=== PATIENT | female | born 1965 | race Caucasian/White ===

== ENCOUNTER 2018-03-05 11:12 | Emergency (ER) | payer BC ==
[2018-03-05] MEDS ORDERED: METOCLOPRAMIDE 10 MG/2mL INJ ONE (12:13)
[2018-03-05] MEDS ORDERED: KETOROLAC 30 MG/ML INJ ONE (12:13)
[2018-03-05] MEDS ORDERED: DIPHENHYDRAMINE 25 MG TAB/CAP ONE (12:17)
[2018-03-05 12:20] LABS: Urine Blood NEGATIVE (NEG); Urine Glucose NEGATIVE (NEG); Urine Protein 1+ (NEG); Urine Specific Gravity 1.025 (1.005-1.030); Urine pH 6.5 (5.0-7.0)
[2018-03-05] MEDS ORDERED: DEXAMETHASONE 10 MG/ML VIAL ONE (13:21)
[2018-03-05] MEDS ORDERED: MEPERIDINE HCL 50 MG/ML AMP ONE (13:23)
--- NOTE | 2018-03-05 14:11 | EDPHYS ---
Physician Documentation [facility] Name: Christy Toro Age: 52 yrs Sex: Female : 1965 Arrival Date: 03/05/2018 Time: 11:15 Bed 26 Private MD: Richy Barreto F ED Physician Danis Matos HPI: 03/05 11:55 This 52 yrs old Female presents to ER via Ambulatory with complaints of jr8 Headache - MIGRAINE, Dizziness, Vomiting. 11:55 The patient complains of pain to the forehead. The patient describes the headache as jr8 throbbing. Onset: The symptoms/episode began/occurred acutely, 3 day(s) ago. Associated signs and symptoms: Pertinent positives: Photophobia vomiting. Severity of symptoms: At its worst the pain was moderate, in the emergency department the pain is unchanged. Headache History: The patient has had previous headaches and this one is similar to previous episodes. The symptoms are alleviated by nothing. the symptoms are aggravated by lights, movement, noise. The patient has experienced similar episodes in the past, several times. The patient has not recently seen a physician. Stated that it is the same migraine she gets but that her medication is not working this time . 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 - Social history:: Smoking status: Patient/guardian denies using tobacco. - Ebola Screening: : No symptoms or risks identified at this time. ROS: 11:55 Eyes: Negative for injury, pain, redness, and discharge, ENT: Negative for injury, jr8 pain, and discharge, Neck: Negative for injury, pain, and swelling, Cardiovascular: Negative for chest pain, palpitations, and edema, Respiratory: Negative for shortness of breath, cough, wheezing, and pleuritic chest pain, Abdomen/GI: Negative for abdominal pain, nausea, vomiting, diarrhea, and constipation, Back: Negative for injury and pain, MS/Extremity: Negative for injury and deformity, Skin: Negative for injury, rash, and discoloration. 11:55 Neuro: Positive for headache, Negative for altered mental status, dizziness, gait disturbance, hearing loss, loss of consciousness, numbness, seizure activity, speech changes, syncope, near syncope, tingling, tinnitus, tremor, visual changes, weakness. Exam: 11:55 Eyes: Pupils equal round and reactive to light, extra-ocular motions intact. Lids and jr8 lashes normal. Conjunctiva and sclera are non-icteric and not injected. Cornea within normal limits. Periorbital areas with no swelling, redness, or edema. ENT: Nares patent. No nasal discharge, no septal abnormalities noted. Tympanic membranes are normal and external auditory canals are clear. Oropharynx with no redness, swelling, or masses, exudates, or evidence of obstruction, uvula midline. Mucous membranes moist. Neck: Trachea midline, no thyromegaly or masses palpated, and no cervical lymphadenopathy. Supple, full range of motion without nuchal rigidity, or vertebral point tenderness. No Meningismus. Cardiovascular: Regular rate and rhythm with a normal S1 and S2. No gallops, murmurs, or rubs. Normal PMI, no JVD. No pulse deficits. Respiratory: Lungs have equal breath sounds bilaterally, clear to auscultation and percussion. No rales, rhonchi or wheezes noted. No increased work of breathing, no retractions or nasal flaring. Abdomen/GI: Soft, non-tender, with normal bowel sounds. No distension or tympany. No guarding or rebound. No evidence of tenderness throughout. Back: No spinal tenderness. No costovertebral tenderness. Full range of motion. Skin: Warm, dry with normal turgor. Normal color with no rashes, no lesions, and no evidence of cellulitis. MS/ Extremity: Pulses equal, no cyanosis. Neurovascular intact. Full, normal range of motion. Neuro: Awake and alert, GCS 15, oriented to person, place, time, and situation. Cranial nerves II-XII grossly intact. Motor strength 5/5 in all extremities. Sensory grossly intact. Cerebellar exam normal. Normal gait. Vital Signs: 11:25 BP 131 / 92; Pulse 98; Resp 18; Temp 97; Pulse Ox 100% ; Weight 68.04 kg; Height 5 ft. sv 3 in. (160.02 cm); Pain 9/10; 13:10 BP 106 / 75; Pulse 82; Resp 16; Pulse Ox 96% on R/A; aj1 11:25 Body Mass Index 26.57 (68.04 kg, 160.02 cm) sv MDM: 11:33 Patient medically screened. jr8 14:10 Data reviewed: vital signs, nurses notes, and as a result, I will discharge patient. jr8 Data interpreted: Pulse oximetry: on room air is 96 %. Interpretation: normal. Counseling: I had a detailed discussion with the patient and/or guardian regarding: the historical points, exam findings, and any diagnostic results supporting the discharge/admit diagnosis, the need for outpatient follow up, a neurologist, to return to the emergency department if symptoms worsen or persist or if there are any questions or concerns that arise at home. Response to treatment: the patient's symptoms have markedly improved after treatment. 03/05 11:55 Order name: Urine Dipstick--Ancillary (enter results); Complete Time: 12:22 bd 03/05 11:55 Order name: Urine --Ancillary (enter results); Complete Time: 12:22 bd 03/05 11:46 Order name: IV; Complete Time: 12:05 jr8 Administered Medications: 12:19 CANCELLED (Facility is out of IV Benadryl): Benadryl 25 mg IVP once aj1 12:20 Drug: Reglan 10 mg Route: IVP; Site: right forearm; aj1 13:07 Follow up: Response: No adverse reaction aj1 12:20 Drug: TORadol 30 mg Route: IVP; Site: right forearm; aj1 13:07 Follow up: Response: No adverse reaction aj1 12:40 Drug: Benadryl 50 mg Route: PO; aj1 13:07 Follow up: Response: No adverse reaction aj1 13:22 Drug: Demerol 25 mg Route: IVP; Site: right forearm; aj1 13:22 Drug: Decadron - Dexamethasone 10 mg Route: IVP; Site: right forearm; aj1 Disposition: 15:20 Co-signature as Attending Physician, Danis Matos MD. rn Disposition: 03/05/18 14:11 Discharged to Home. Impression: Migraine. - Condition is Stable. - Discharge Instructions: Migraine Headache. - Medication Reconciliation Form, Thank You Letter, Antibiotic Education, Prescription Opioid Use form. - Follow up: Richy Barreto MD; When: 5 - 6 days; Reason: Recheck today's complaints, Continuance of care, Re-evaluation by your physician. - Problem is new. - Symptoms have improved. Signatures: Dispatcher [employer] EDChiara Terry RN RN aj1 Amy Khoury RN RN sv Nieto, Roman, MD MD rn Smirch, Shelby, RN RN ss Roszak, Josh, PA PA jr8 Corrections: (The following items were deleted from the chart) 12:19 11:46 Benadryl 25 mg IVP once ordered. jr8 aj1 14:38 14:11 03/05/2018 14:11 Discharged to Home. Impression: Migraine. Condition is Stable. ss Forms are Medication Reconciliation Form, Thank You Letter, Antibiotic Education, Prescription Opioid Use. Follow up: Richy Barreto; When: 5 - 6 days; Reason: Recheck today's complaints, Continuance of care, Re-evaluation by your physician. Problem is new. Symptoms have improved. jr8
--- NOTE | 2018-03-05 14:11 | ER ---
Nurse's Notes [facility] Name: Christy Toro Age: 52 yrs Sex: Female : 1965 Arrival Date: 03/05/2018 Time: 11:15 Bed 26 Private MD: Richy Barreto F Diagnosis: Migraine Presentation: 03/05 11:23 Presenting complaint: Patient states: migraine, dizziness, vomiting since Sunday. sv Transition of care: patient was not received from another setting of care. Onset of symptoms was March 02, 2018. Care prior to arrival: None. 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 - Social history:: Smoking status: Patient/guardian denies using tobacco. - Ebola Screening: : No symptoms or risks identified at this time. Screenin:57 Abuse screen: Denies threats or abuse. Denies injuries from another. Nutritional aj1 screening: No deficits noted. Tuberculosis screening: No symptoms or risk factors identified. Assessment: 11:57 General: Appears in no apparent distress. uncomfortable, Behavior is calm, cooperative, aj1 appropriate for age. Pain: Complains of pain in forehead Pain does not radiate. Pain currently is 9 out of 10 on a pain scale. Quality of pain is described as pressure, Pain began 4 days ago Is continuous, Alleviated by nothing. Aggravated by lights, sound and smoke. Neuro: Level of Consciousness is awake, alert, obeys commands, Oriented to person, place, time, situation, [employer] Supervisor are equal bilaterally Moves all extremities. Full function Gait is steady, Speech is normal, Facial symmetry appears normal, Pupils are PERRLA, Intact Reports dizziness, headache photophobia. Cardiovascular: Patient's skin is warm and dry. Respiratory: Airway is patent Respiratory effort is even, unlabored, Respiratory pattern is regular, symmetrical. GI: Reports nausea, vomiting, Patient currently denies diarrhea. : No signs and/or symptoms were reported regarding the genitourinary system. EENT: No signs and/or symptoms were reported regarding the EENT system. Derm: No signs and/or symptoms reported regarding the dermatologic system. Skin is pink, warm \T\ dry. normal. Musculoskeletal: No signs and/or symptoms reported regarding the musculoskeletal system. Circulation, motion, and sensation intact. 13:08 Reassessment: Patient appears in no apparent distress at this time. Patient and/or aj1 family updated on plan of care and expected duration. Pain level reassessed. Patient is alert, oriented x 3, equal unlabored respirations, skin warm/dry/pink. Patient states that her pain has decreased to a 7/10, but she is still having a headache and would like something else for the pain. Notified ANGELO Cantrell of patient complaint. Vital Signs: 11:25 BP 131 / 92; Pulse 98; Resp 18; Temp 97; Pulse Ox 100% ; Weight 68.04 kg; Height 5 ft. sv 3 in. (160.02 cm); Pain 9/10; 13:10 BP 106 / 75; Pulse 82; Resp 16; Pulse Ox 96% on R/A; aj1 11:25 Body Mass Index 26.57 (68.04 kg, 160.02 cm) sv ED Course: 11:15 Patient arrived in ED. sb2 11:16 Richy Barreto MD is Private Physician. sb2 11:23 Triage completed. sv 11:26 Arm band placed on left wrist. sv 11:32 Humphrey Suh PA is PHCP. jr8 11:32 Danis Matos MD is Attending Physician. jr8 11:33 Chiara Vazquez, NERISSA is Primary Nurse. aj1 11:57 Patient has correct armband on for positive identification. Bed in low position. Call aj1 light in reach. Side rails up X 1. Door closed. Noise minimized. Lights dimmed. Warm blanket given. 11:57 No provider procedures requiring assistance completed. aj1 12:06 Inserted saline lock: 22 gauge in right forearm, using aseptic technique. Blood em1 collected. 14:10 Richy Barreto MD is Referral Physician. jr8 14:37 IV discontinued, intact, bleeding controlled, No redness/swelling at site. Pressure ss dressing applied. Administered Medications: 12:19 CANCELLED (Facility is out of IV Benadryl): Benadryl 25 mg IVP once aj1 12:20 Drug: Reglan 10 mg Route: IVP; Site: right forearm; aj1 13:07 Follow up: Response: No adverse reaction aj1 12:20 Drug: TORadol 30 mg Route: IVP; Site: right forearm; aj1 13:07 Follow up: Response: No adverse reaction aj1 12:40 Drug: Benadryl 50 mg Route: PO; aj1 13:07 Follow up: Response: No adverse reaction aj1 13:22 Drug: Demerol 25 mg Route: IVP; Site: right forearm; aj1 13:22 Drug: Decadron - Dexamethasone 10 mg Route: IVP; Site: right forearm; aj1 Outcome: 14:11 Discharge ordered by MD. jr8 14:37 Discharged to home ambulatory, with significant other. ss 14:37 Condition: good 14:37 Discharge instructions given to patient, significant other, Instructed on discharge instructions, follow up and referral plans. Demonstrated understanding of instructions, follow-up care. 14:38 Patient left the ED. ss Signatures: Chiara Vazquez RN NERISSA aj1 Amy Khoury RN Blaine Gonzales em1 Shanta Hanson RN RN ss Humphrey Suh PA PA jr8 Robina Stallings sb2
== END 2018-03-05 14:38 | disposition home or self-care (01) ==
LOC: ER 11:12
DX: G43.909 Migraine, unspecified, not intractable, without status migrainosus (principal); Z88.1 Allergy status to other antibiotic agents; Z88.3 Allergy status to other anti-infective agents; Z88.8 Allergy status to other drugs, medicaments and biological substances
CPT/HCPCS: 81003; 81025; 96374; 96375; 99283; J1100; J2175; J2765

== ENCOUNTER 2019-07-11 15:53 | Emergency (ER) | payer BC ==
[2019-07-11] MEDS ORDERED: PROMETHAZINE INJ 25 MG/ML AMP ONE (16:14)
[2019-07-11] MEDS ORDERED: DIAZEPAM 10 MG/2 ML INJ SYRINGE ONE (16:15)
[2019-07-11] MEDS ORDERED: NA CHLORIDE 0.9% 1,000 ML ONE (16:15)
--- NOTE | 2019-07-11 16:22 | EDPHYS ---
Physician Documentation [facility] Name: Christy Toro Age: 54 yrs Sex: Female : 1965 Arrival Date: 07/11/2019 Time: 15:55 Bed 19 Private MD: Richy Barreto F ED Physician Odell Walls HPI: 07/11 16:24 This 54 yrs old Female presents to ER via Ambulatory with complaints of snw Dizziness. 16:24 The patient presents with sense of spinning. Onset: The symptoms/episode began/occurred snw suddenly, 3 day(s) ago, and became persistent. Context: occurred at home, occurred while the patient was random. Modifying factors: The symptoms are alleviated by nothing, the symptoms are aggravated by changing position. Associated signs and symptoms: Pertinent positives: nausea. Severity of symptoms: At their worst the symptoms were moderate in the emergency department the symptoms have improved. Patient's baseline: Neuro: alert and fully oriented, Motor: no deficits, Ambulation: walks without assistance, Speech: normal. The patient has not experienced similar symptoms in the past, but similar s/s to migraines without the headache. The patient has not recently seen a physician, the patient's primary care provider is Dr. Barreto. 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 - Coronavirus screen:: The patient has NOT traveled to [place], [place], or [place] in the past 14 days. Proceed with normal triage process as indicated. The patient has NOT had contact with known/suspected case of Coronavirus?. - Social history:: Smoking status: . - Ebola Screening: : No symptoms or risks identified at this time. ROS: 16:22 Constitutional: Negative for fever, chills, and weight loss, Eyes: Negative for injury, snw pain, redness, and discharge, ENT: Negative for injury, pain, and discharge, Neck: Negative for injury and swelling, positive for posterior neck tightness Cardiovascular: Negative for chest pain, palpitations, and edema, Respiratory: Negative for shortness of breath, cough, wheezing, and pleuritic chest pain, Abdomen/GI: Negative for abdominal pain, vomiting, diarrhea, and constipation, postitive for nausea Back: Negative for injury and pain, : Negative for injury, bleeding, discharge, and swelling, MS/Extremity: Negative for injury and deformity, Skin: Negative for injury, rash, and discoloration. 16:22 Neuro: Positive for dizziness. Exam: 16:21 Constitutional: This is a well developed, well nourished patient who is awake, alert, snw and in no acute distress. Head/Face: Normocephalic, atraumatic. Eyes: Pupils equal round and reactive to light, extra-ocular motions intact. Lids and lashes normal. Conjunctiva and sclera are non-icteric and not injected. Cornea within normal limits. Periorbital areas with no swelling, redness, or edema. ENT: Nares patent. No nasal discharge, no septal abnormalities noted. Tympanic membranes are normal and external auditory canals are clear. Oropharynx with no redness, swelling, or masses, exudates, or evidence of obstruction, uvula midline. Mucous membranes moist. Neck: Trachea midline, no thyromegaly or masses palpated, and no cervical lymphadenopathy. Supple, full range of motion without nuchal rigidity, or vertebral point tenderness. No Meningismus. Chest/axilla: Normal chest wall appearance and motion. Nontender with no deformity. No lesions are appreciated. Cardiovascular: Regular rate and rhythm with a normal S1 and S2. No gallops, murmurs, or rubs. Normal PMI, no JVD. No pulse deficits. Respiratory: Lungs have equal breath sounds bilaterally, clear to auscultation and percussion. No rales, rhonchi or wheezes noted. No increased work of breathing, no retractions or nasal flaring. Abdomen/GI: Soft, non-tender, with normal bowel sounds. No distension or tympany. No guarding or rebound. No evidence of tenderness throughout. Back: No spinal tenderness. No costovertebral tenderness. Full range of motion. Skin: Warm, dry with normal turgor. Normal color with no rashes, no lesions, and no evidence of cellulitis. MS/ Extremity: Pulses equal, no cyanosis. Neurovascular intact. Full, normal range of motion. Neuro: Awake and alert, GCS 15, oriented to person, place, time, and situation. Cranial nerves II-XII grossly intact. Motor strength 5/5 in all extremities. Sensory grossly intact. Cerebellar exam normal. Normal gait. Psych: Awake, alert, with orientation to person, place and time. Behavior, mood, and affect are within normal limits. Vital Signs: 15:58 BP 140 / 101; Pulse 65; Resp 16 S; Temp 98.0(O); Pulse Ox 100% on R/A; Weight 70.31 kg aa5 (R); Height 5 ft. 3 in. (160.02 cm) (R); Pain 7/10; 15:58 Body Mass Index 27.46 (70.31 kg, 160.02 cm) aa5 MDM: 16:02 Patient medically screened. snw 16:18 Data reviewed: vital signs, nurses notes. Data interpreted: Pulse oximetry: on room air snw is 100 %. Interpretation: normal. Counseling: I had a detailed discussion with the patient and/or guardian regarding: the historical points, exam findings, and any diagnostic results supporting the discharge/admit diagnosis, the presence of at least one elevated blood pressure reading (>120/80) during this emergency department visit. Response to treatment: pt left department prior to IV start without stating reason. Administered Medications: No medications were administered Disposition: 18:34 Co-signature as Attending Physician, Odell Walls MD I agree with the assessment and kdr plan of care. Disposition: 07/11/19 16:21 Patient has left against medical advice. - Patients states they are going to Home. - Condition is Undetermined. Signatures: Dispatcher [employer] EDMS Odell Walls MD MD kdr Therrien, Shelly, FNP-C SHIP OFFICER-Shani Dumont, RN RN aa5 Rosa Powell RN RN tw2 Corrections: (The following items were deleted from the chart) 16:21 16:21 07/11/2019 16:21 Patients has left against medical advice. Patient states they tw2 are going to Home. Condition is Undetermined. tw2
--- NOTE | 2019-07-11 16:22 | ER ---
Nurse's Notes [facility] Name: Christy Toro Age: 54 yrs Sex: Female : 1965 Arrival Date: 07/11/2019 Time: 15:55 Bed 19 Private MD: Richy Barreto F Diagnosis: Presentation: 07/11 15:57 Presenting complaint: Patient states: dizziness x 3 days ago and worse today. Pt states aa5 "the back of my neck feels tight". pt also reports nausea. Transition of care: patient was not received from another setting of care. Onset of symptoms was June 2019. Risk Assessment: Do you want to hurt yourself or someone else? Patient reports no desire to harm self or others. Initial Sepsis Screen: Does the patient meet any 2 criteria? No. Patient's initial sepsis screen is negative. Does the patient have a suspected source of infection? No. Patient's initial sepsis screen is negative. Care prior to arrival: None. 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 - Coronavirus screen:: The patient has NOT traveled to [place], [place], or [place] in the past 14 days. Proceed with normal triage process as indicated. The patient has NOT had contact with known/suspected case of Coronavirus?. - Social history:: Smoking status: . - Ebola Screening: : No symptoms or risks identified at this time. Screenin:06 Abuse screen: Denies threats or abuse. Nutritional screening: No deficits noted. tw2 Tuberculosis screening: No symptoms or risk factors identified. Fall Risk None identified. Assessment: 16:05 Reassessment: provider at bedside at this time. tw2 16:19 Reassessment: walking into exam room with medication, iv start tote, and pt labels, pt tw2 and daughter leaving exam room, i called pts name and she kept walking, daughter asked "are you doing her blood work?", i explained that i am and that i have medication in my hand for her, the daughter called her mothers name twice and she kept walking out of the ER at this time, pt and daughter seen getting into vehicle. Vital Signs: 15:58 BP 140 / 101; Pulse 65; Resp 16 S; Temp 98.0(O); Pulse Ox 100% on R/A; Weight 70.31 kg aa5 (R); Height 5 ft. 3 in. (160.02 cm) (R); Pain 7/10; 15:58 Body Mass Index 27.46 (70.31 kg, 160.02 cm) aa5 ED Course: 15:55 Patient arrived in ED. as 15:55 Richy Barreto MD is Private Physician. as 15:57 Triage completed. aa5 15:57 Arm band placed on. aa5 16:00 Rosa Powell, RN is Primary Nurse. tw2 16:00 Bed in low position. Call light in reach. tw2 16:01 Vashti Nunez FNP-C [facility]. snw 16:01 Odell Walls MD is Attending Physician. snw Administered Medications: No medications were administered Outcome: 16:19 AMA Left before signing form. tw2 16:19 unknown 16:21 Patient left the ED. tw2 Signatures: Vashti Nunez FNP-C SCHOOL LEADER-María Elena Truong Audri RN RN aa5 Rosa Powell RN RN tw2
[2019-07-11 16:33] VITALS: BP 140/101; TEMP 98; O2SAT 100
== END 2019-07-11 16:21 | disposition left against medical advice (07) ==
LOC: ER 15:53
DX: R42 Dizziness and giddiness (principal); Z53.29 Procedure and treatment not carried out because of patient's decision for other reasons
CPT/HCPCS: 99281; J2550; J3360; J7030